=== PATIENT | female | born 1955 | race Caucasian/White ===

== ENCOUNTER 2023-07-06 08:27 | Emergency (ER) | payer MEDICARE, SELFPAY ==
[2023-07-06 08:34] VITALS: BP 161/75; PULSE 69; RESP 16; TEMP 36.7; O2SAT 100; BMI 30.7
--- NOTE | 2023-07-06 08:37 | DI.CT.S_ITS ---
PROCEDURE: CT HEAD/BRAIN WO CON INDICATIONS: fall yesterday TECHNIQUE: Noncontrast 4.5 mm thick angled axial sections acquired from the foramen magnum to the vertex, with coronal and sagittal reformats. For radiation dose reduction, the following was used: automated exposure control, adjustment of mA and/or kV according to patient size. COMPARISON: [facility], CT, CT FACIAL BONES WO CON, 07/06/2023, 8:42. [facility], CT, CT CERVICAL SPINE WO CON, 07/06/2023, 8:42. FINDINGS: Image quality: Excellent. CSF spaces: Basal cisterns are patent. No extra-axial fluid collections. The ventricles are symmetric in size and shape. Brain: No intracranial bleeds or masses. There is cerebral volume loss for age, with resultant ventricular and sulcal prominence. There are periventricular and deep white matter chronic small vessel ischemic changes. There is intracranial internal carotid artery atherosclerosis. Skull and face: Calvarium and visualized facial bones appear intact, without suspicious lesions. Sinuses: Visualized sinuses demonstrate incompletely visualized mucosal thickening within the left maxillary sinus.. IMPRESSION: 1. No acute intracranial process. 2. Mild atrophy and chronic microvascular ischemic changes. Dictated by: Emma Novak M.D. on 07/06/2023 at 9:02 Approved by: Emma Novak M.D. on 07/06/2023 at 9:04
--- NOTE | 2023-07-06 08:37 | DI.CT.S_ITS ---
PROCEDURE: CT CERVICAL SPINE WO CON INDICATIONS: fall TECHNIQUE: Noncontrast 3 mm thick sections acquired from the skull base to the T4 level. Sagittal and coronal reformats were then constructed. For radiation dose reduction, the following was used: automated exposure control, adjustment of mA and/or kV according to patient size. COMPARISON: [facility], CT, CT FACIAL BONES WO CON, 07/06/2023, 8:42. [facility], CT, CT HEAD/BRAIN WO CON, 07/06/2023, 8:42. FINDINGS: Image quality: Excellent. Bones: No fractures or dislocations. Visualized superior ribs are intact. Multilevel degenerative changes are present. Soft tissues: Prevertebral soft tissues are normal in thickness. No paravertebral hematomas. No apical pneumothoraces. Thyroid gland is markedly enlarged with areas of heterogeneous low attenuation and calcification. IMPRESSION: Degenerative changes without visualized fracture. Markedly enlarged thyroid gland as above. This may represent goiter. Further evaluation with nonurgent thyroid ultrasound is recommended. Dictated by: Emma Novak M.D. on 07/06/2023 at 9:18 Approved by: Emma Novak M.D. on 07/06/2023 at 9:21
--- NOTE | 2023-07-06 08:37 | DI.CT.S_ITS ---
PROCEDURE: CT FACIAL BONES WO CON INDICATIONS: fall, nose and forehead TECHNIQUE: Noncontrast 2.5 mm thick axial images acquired from the mandible through the frontal sinuses, with coronal and sagittal reformatting. For radiation dose reduction, the following was used: automated exposure control, adjustment of mA and/or kV according to patient size. COMPARISON: [facility], CT, CT CERVICAL SPINE WO CON, 07/06/2023, 8:42. [facility], CT, CT HEAD/BRAIN WO CON, 07/06/2023, 8:42. FINDINGS: Image quality: Excellent. Bones and teeth: Orbital do are intact. Sinus do show no fracture or deformity. Nasal bones and septum are intact. Visualized portions of the mandible demonstrate no fractures or subluxation. Zygomatic arches are intact. Pterygoid plates are intact. Visualized portions of the skull base and auditory canals are intact. Sinuses: Paranasal sinuses are aerated, without fluid levels. Mucous retention cyst versus polyp is present in the left maxillary sinus. Mastoid air cells are aerated. Soft tissues: Frontal scalp hematoma. No enlarged lymph nodes. No soft tissue lacerations or debris. Vascular: Visualized vascular structures appear normal in the absence of contrast. Bony vascular foramina and canals are intact. IMPRESSION: Frontal scalp hematoma. No visualized osseous fractures. Dictated by: Emma Novak M.D. on 07/06/2023 at 9:17 Approved by: Emma Novak M.D. on 07/06/2023 at 9:18
--- NOTE | 2023-07-06 08:37 | ED.FALL ---
HPI - Fall General Chief Complaint: Head Injury Stated Complaint: sent by [facility] hit head T-1 Time Seen by Provider: 07/06/23 08:33 Source: patient Mode of arrival: Ambulatory History of Present Illness HPI Narrative: Patient is a 68-year-old female without significant past medical history presenting to day after a ground level fall yesterday. She reports that she tripped while carrying buckets of water. She landed on as falls with her left knee hitting her nose and forehead. No loss of consciousness no nausea or vomiting. No numbness tingling or weakness. She is actually not on any antiplatelet or anticoagulation medication. She went to the walk-in clinic today to get checked out and was sent here for further evaluation. No other complaints Related Data Allergies Allergy/AdvReac Type Severity Reaction Status Date / Time metronidazole [From Flagyl] AdvReac Intermediate Vomiting Verified 07/06/23 08:37 Review of Systems Review of Systems ROS Unobtainable: All systems reviewed & are unremarkable except as noted in HPI and below Patient History Social History Smoking Status: Never smoker Smoking Status: Never smoker Substance Use Type: does not use Exam Initial Vital Signs Initial Vital Signs: Vital Signs Temperature 98.1 F 07/06/23 08:34 Pulse Rate 69 07/06/23 08:34 Respiratory Rate 16 07/06/23 08:34 Blood Pressure 161/75 H 07/06/23 08:34 Pulse Oximetry 100 07/06/23 08:34 Oxygen Delivery Method Room Air 07/06/23 08:34 GENERAL: Alert pleasant well-appearing 68-year-old female and in no acute distress. HEENT: Significant abrasion and tenderness forehead right side some no swelling as well no epistaxis no crepitation NECK: No vertebral tenderness full range of motion CARDIOVASCULAR: Regular rate and rhythm without murmurs, rubs or gallops. RESPIRATORY: Breath sounds equal bilaterally, no wheezes rales or rhonchi. ABDOMEN: Soft, nontender. Normoactive bowel sounds all 4 quadrants. No guarding or rebound. EXTREMITIES: Normal range of motion, no clubbing or edema. Neurovascularly intact NEUROLOGICAL: Alert and oriented x4.Normal gait and speech. Occupational Therapy Professor strength equal bilaterally SKIN: Warm, dry, no laceration, no petechiae, no rashes or lesions. Course Orders Ordered: ED Orders 07/06/23 08:37 CT cervical spine wo con Stat CT facial bones wo con Stat CT head/brain wo con Stat Discontinued Medications Diphtheria/Tetanus/Acell Pertussis (Tet,Diph,Pertuss(Acell),Vac/Pf 0.5 Ml Syringe) 0.5 ml IM .ONCE ONE Stop: 07/06/23 08:38 Last Admin: 07/06/23 08:57 Dose: 0.5 ml Documented By: KELLY Vital Signs Vital signs: Vital Signs - 8 hr 07/06/23 08:34 07/06/23 09:37 Temperature 98.1 F Pulse Rate 69 62 Respiratory Rate 16 14 Blood Pressure 161/75 H 136/65 Pulse Oximetry 100 98 Oxygen Delivery Method Room Air Room Air MDM - Fall Imaging Data CT scan - head: Radiologist's Impression: PROCEDURE:? CT HEAD/BRAIN WO CON ? INDICATIONS:? fall yesterday ? TECHNIQUE:? Noncontrast 4.5 mm thick angled axial sections acquired from the foramen magnum to the vertex, with coronal and sagittal reformats.? For radiation dose reduction, the following was used:? automated exposure control, adjustment of mA and/or kV according to patient size.? ? COMPARISON:? [facility], CT, CT FACIAL BONES WO CON, 07/06/2023, 8:42.? [facility], CT, CT CERVICAL SPINE WO CON, 07/06/2023, 8:42. ? FINDINGS:? Image quality:? Excellent.? ? CSF spaces:? Basal cisterns are patent.? No extra-axial fluid collections.? The ventricles are symmetric in size and shape.? ? Brain:? No intracranial bleeds or masses.? There is cerebral volume loss for age, with resultant ventricular and sulcal prominence.? There are periventricular and deep white matter chronic small vessel ischemic changes.? There is intracranial internal carotid artery atherosclerosis.? ? Skull and face:? Calvarium and visualized facial bones appear intact, without suspicious lesions.? ? Sinuses:? Visualized sinuses demonstrate incompletely visualized mucosal thickening within the left maxillary sinus..? ? IMPRESSION:? ? 1. No acute intracranial process. ? 2. Mild atrophy and chronic microvascular ischemic changes. ? ? Dictated by: Emma Novak M.D. on 07/06/2023 at 9:0 CT - cervical spine: Radiologist's Impression: PROCEDURE:? CT CERVICAL SPINE WO CON ? INDICATIONS:? fall ? TECHNIQUE:? Noncontrast 3 mm thick sections acquired from the skull base to the T4 level.? Sagittal and coronal reformats were then constructed.? For radiation dose reduction, the following was used:? automated exposure control, adjustment of mA and/or kV according to patient size.? ? COMPARISON:? [facility], CT, CT FACIAL BONES WO CON, 07/06/2023, 8:42.? [facility], CT, CT HEAD/BRAIN WO CON, 07/06/2023, 8:42. ? FINDINGS:? Image quality:? Excellent.? ? Bones:? No fractures or dislocations.? Visualized superior ribs are intact.? Multilevel degenerative changes are present. ? Soft tissues:? Prevertebral soft tissues are normal in thickness.? No paravertebral hematomas.? No apical pneumothoraces.? Thyroid gland is markedly enlarged with areas of heterogeneous low attenuation and calcification. ? ? IMPRESSION:? Degenerative changes without visualized fracture. ? Markedly enlarged thyroid gland as above.? This may represent goiter.? Further evaluation with nonurgent thyroid ultrasound is recommended. ? Dictated by: Emma Novak M.D. on 07/06/2023 at 9:18 ? ? ct face: Radiologist's Impression: PROCEDURE:? CT FACIAL BONES WO CON ? INDICATIONS:? fall, nose and forehead ? TECHNIQUE:? Noncontrast 2.5 mm thick axial images acquired from the mandible through the frontal sinuses, with coronal and sagittal reformatting.? For radiation dose reduction, the following was used:? automated exposure control, adjustment of mA and/or kV according to patient size.? ? COMPARISON:? [facility], CT, CT CERVICAL SPINE WO CON, 07/06/2023, 8:42.? [facility], CT, CT HEAD/BRAIN WO CON, 07/06/2023, 8:42. ? FINDINGS:? Image quality:? Excellent.? ? Bones and teeth:? Orbital do are intact.? Sinus do show no fracture or deformity.? Nasal bones and septum are intact.? Visualized portions of the mandible demonstrate no fractures or subluxation.? Zygomatic arches are intact.? Pterygoid plates are intact.? Visualized portions of the skull base and auditory canals are intact.? ? Sinuses:? Paranasal sinuses are aerated, without fluid levels.? Mucous retention cyst versus polyp is present in the left maxillary sinus.? Mastoid air cells are aerated.? ? Soft tissues:? Frontal scalp hematoma.? No enlarged lymph nodes.? No soft tissue lacerations or debris.? ? Vascular:? Visualized vascular structures appear normal in the absence of contrast.? Bony vascular foramina and canals are intact.? ? IMPRESSION:? ? Frontal scalp hematoma. ? No visualized osseous fractures. ? ? Dictated by: Emma Novak M.D. on 07/06/2023 at 9:17 ? ? MDM Narrative Medical decision making narrative: Patient is 68-year-old female presents today with ground level fall yesterday. Significant can abrasion on forehead. CT head, facial and cervical spine are all negative for fracture. Supportive care only. Discussed with her when to return to ED. Discharge Plan Departure Patient Disposition: Home Clinical Impression: Closed head injury Instructions: Concussion Activity Restrictions/Additional Instructions: *You have been diagnosed with closed head injury *What to do: At this time be sure that you get some rest. Ice forehead 20-30 minutes at a time if needed *Continue to take medications as directed Motrin 600 mg every 6 hours if needed for [id number] Tylenol 650 mg every 4-6 hours if needed for [id number] *Follow up with your primary care provider in 2-3 days or call [phone] *Return to ER if you should have increasing pain persistent vomiting numbness tingling weakness or any new, worsening or concerning symptoms Referrals: Chapito,MD Eliezer [Primary Care Provider] - Stand Alone Forms: Patient Portal/API
[2023-07-06] MEDS: TET,DIPH,PERTUSS(ACELL),VAC/PF 0.5 ML SYRINGE IM (08:57)
[2023-07-06 09:37] VITALS: BP 136/65; PULSE 62; RESP 14; O2SAT 98
== END 2023-07-06 09:35 | disposition home or self-care (01) ==
PROVIDERS: Emergency Provider Emergency Medicine
DX: S09.90XA Unspecified injury of head, initial encounter (principal); W01.0XXA Fall on same level from slipping, tripping and stumbling without subsequent striking against object, initial encounter; Z23 Encounter for immunization
CPT/HCPCS: 70450; 70486; 72125; 90471; 99283; 99284; 90715

== ENCOUNTER 2023-08-22 19:04 | Emergency (ER) | payer MEDICARE, SELFPAY ==
[2023-08-22] VITALS (7 sets, daily range): BP systolic 134–160; BP diastolic 71–113; PULSE 83–112; RESP 16–18; TEMP 36.6–37.3; O2SAT 98–100; BMI 30.7
--- NOTE | 2023-08-22 19:31 | ED.FEMALEGU ---
HPI - Female Genitourinary General Chief complaint: Urogenital-Female Stated complaint: urinating blood/ incontinence Time Seen by Provider: 08/22/23 19:17 Source: patient Mode of arrival: Ambulatory History of Present Illness HPI Narrative: Patient is a healthy 68-year-old female presents today with urinary incontinence and frequency with some hematuria. She says that it feels like when she had her last bladder infection. She reports that yesterday she was feeling fine. Today she is had significant urinary incontinence needing to make homemade pads. She is some right lower abdominal pain. She denies fever chills or nausea but is noted to be mildly tachycardic. No flank pain Related Data Previous Rx's Medication Instructions Recorded cephalexin 500 mg capsule 500 mg PO BID 7 days #14 caps 08/22/23 Allergies Allergy/AdvReac Type Severity Reaction Status Date / Time metronidazole [From Flagyl] AdvReac Intermediate Vomiting Verified 08/22/23 19:11 Patient History Substance Use Type: does not use Exam Initial Vital Signs Initial Vital Signs: Vital Signs Temperature 99.1 F 08/22/23 19:08 Pulse Rate 112 H 08/22/23 19:08 Respiratory Rate 18 08/22/23 19:08 Blood Pressure 160/86 H 08/22/23 19:08 Pulse Oximetry 99 08/22/23 19:08 Oxygen Delivery Method Room Air 08/22/23 19:08 GENERAL: Pleasant 68-year-old female HEENT: Head atraumatic,EOMI, pupils reactive, face symmetric, moist mucous membranes CARDIOVASCULAR: Tachycardic regular RESPIRATORY: Breath sounds equal bilaterally, no wheezes rales or rhonchi. ABDOMEN: Soft, mild right lower quadrant tenderness no suprapubic pain no flank pain negative Ray's sign no distention no guarding or rebound : No CVA tenderness EXTREMITIES: Normal range of motion, no clubbing or edema. Neurovascularly intact NEUROLOGICAL: Alert and oriented x4.Normal gait and speech. Cranial nerves II through XII grossly intact. SKIN: Warm, dry, no laceration, no petechiae, no rashes or lesions. Course Orders Ordered: ED Orders 08/22/23 19:19 Ictotest Urine Stat Urinalysis and Microscopic Stat Urine Culture Stat 08/22/23 20:04 CBC Auto Diff [Complete Blood Count AUTO DIFF] Stat CMP [Comprehensive Metabolic Panel] Stat Lactate (Lactic Acid) Stat Lipase Stat 08/22/23 20:37 CT abdomen pelvis w con Stat Discontinued Medications Sodium Chloride (Normal Saline 0.9%) 1,000 mls @ 1,000 mls/hr IV BOLUS ONE Stop: 08/22/23 20:39 Last Infusion: 08/22/23 22:15 Dose: Infused Documented By: Admin: 08/22/23 20:17 Dose: 1,000 mls/hr Documented By: SHEILA Ceftriaxone Sodium 1,000 mg/ (Sodium Chloride) 100 mls @ 200 mls/hr IV NOW ONE Stop: 08/22/23 19:57 Last Infusion: 08/22/23 21:00 Dose: Infused Documented By: Admin: 08/22/23 20:17 Dose: 200 mls/hr Documented By: SHEILA Ondansetron HCl (Ondansetron 4 Mg Odt) 4 mg SL NOW PRN PRN Reason: Nausea And Vomiting Vital Signs Vital signs: Vital Signs - 8 hr 08/22/23 19:08 08/22/23 21:00 08/22/23 21:02 Temperature 99.1 F Pulse Rate 112 H 90 89 Respiratory Rate 18 16 Blood Pressure 160/86 H 138/85 Pulse Oximetry 99 99 98 Oxygen Delivery Method Room Air Room Air 08/22/23 21:36 08/22/23 21:38 08/22/23 21:38 Temperature Pulse Rate 89 87 Respiratory Rate Blood Pressure 137/113 H Pulse Oximetry 99 100 Oxygen Delivery Method 08/22/23 21:40 08/22/23 21:40 08/22/23 22:00 Temperature 98 F Pulse Rate 86 83 Respiratory Rate 16 Blood Pressure 134/71 Pulse Oximetry 100 100 Oxygen Delivery Method 08/22/23 22:00 Temperature Pulse Rate Respiratory Rate Blood Pressure 141/78 H Pulse Oximetry Oxygen Delivery Method MDM - Female Genitourinary Lab Data 08/22/23 20:04 08/22/23 20:04 Labs: Lab Results 08/22/23 08/22/23 Range/Units 19:19 20:04 WBC 13.9 H (4.5-11.0) X10^3/uL RBC 4.37 (4.0-5.2) X10^6/uL Hgb 12.5 (12.0-16.0) g/dL Hct 37.9 (36-46) % MCV 86.9 (80-100) fL MCH 28.7 (26-34) PG MCHC 33.1 (30-36) % RDW 13.4 (11.6-14.8) % Plt Count 366 (150-400) X10^3/uL Neut % (Auto) 79.3 H (50-75) % Lymph % (Auto) 14.0 L (25-40) % [place] % (Auto) 5.6 (3-14) % Eos % (Auto) 0.6 L (2-4) % Baso % (Auto) 0.5 (0-2) % Neut # (Auto) 98298 H (6672-9633) /uL Lymph # (Auto) 1900 (1084-2398) /uL [place] # (Auto) 800 (0-900) /uL Eos # (Auto) 100 (0-450) /uL Baso # (Auto) 100 (0-100) /uL Sodium 137 (137-145) mmol/L Potassium 3.9 (3.4-5.1) mmol/L Chloride 102 (98-107) mmol/L Carbon Dioxide 24 (22-32) mmol/L BUN 21 H (7-17) mg/dL Creatinine 0.69 (0.52-1.04) mg/dL Estimated GFR > 60 (>60) mL/min BUN/Creatinine Ratio 30.4 H (6-22) Glucose 110 (80-110) mg/dL Lactate 1.1 (0.7-2.1) mmol/L Calcium 9.4 (8.4-10.2) mg/dL Total Bilirubin 0.4 (0.2-1.3) mg/dL AST 25 (14-36) IU/L ALT 31 (<35) IU/L Alkaline Phosphatase 55 (38-126) U/L Total Protein 7.6 (6.3-8.2) g/dL Albumin 4.4 (3.5-5.0) g/dL Globulin 3.2 (1.7-4.1) g/dL Albumin/Globulin Ratio 1.4 (1.0-2.8) Lipase 242 (23-300) U/L Urine Color Red Urine Appearance Cloudy Urine pH 6.5 (4.5-8.0) Ur Specific [place] 1.010 (1.000-1.035) Urine Protein 3+ H (Negative) Urine Glucose (UA) Trace H (Negative) g/dL Urine Ketones 1+ H (NEGATIVE) Urine Occult Blood 3+ H (Negative) Urine Nitrate Positive H (Negative) Urine Bilirubin 2+ H (NEGATIVE) Ur Bilirubin Confirm Negative (Negative) Urine Urobilinogen 2.0 H (0.2) E.U./dL Ur Leukocyte Esterase 1+ H (NEGATIVE) Urine RBC >100/hpf H (0-5/HPF) Urine WBC 10-30/hpf H (0-5/HPF) Ur Squamous Epith Cells None seen (0-5/HPF) Urine Bacteria None seen (None) Ur Culture Indicated? Specimen cultured Imaging Data CT scan - abdomen/pelvis: Radiologist's Impression: PROCEDURE: CT ABDOMEN PELVIS W CON INDICATIONS: RLQ pain TECHNIQUE: After the administration of intravenous contrast, axial sections acquired from the lung bases to the pubic symphysis. Coronal and sagittal reformats were performed. For radiation dose reduction, the following was used: automated exposure control, adjustment of mA and/or kV according to patient size. COMPARISON: None. FINDINGS: Image quality: Excellent. Lung bases: Unremarkable. Heart: No significant findings. ABDOMEN: Liver: Multiple well-circumscribed hypodense structures are seen scattered in liver parenchyma measures up to 4.6 x 3.2 cm in size in anterior right hepatic dome and 3.3 Hounsfield unit in density. Gallbladder: Within normal limits. Biliary ducts: Unremarkable. Pancreas: Unremarkable. Spleen: Unremarkable. Adrenal Glands: Thickened bilateral adrenal glands with suggestion of 1 x 0.7 cm left hypodense thyroid nodule and 1 x 0.9 cm right hypodense thyroid nodule. Kidneys and Ureters: Unremarkable. Stomach and Bowel: There is no bowel obstruction. No gastric or small bowel wall thickening.: Appendix is visualized in right lower quadrant and is normal in size and appearance. Diffuse sigmoid colon and distal descending colon wall thickening is seen with narrowing of the lumen and pericolonic fat stranding series 2, image 71 and 72. No abscess collection. Peritoneum: No abnormal intraperitoneal fluid. No free air. Ventral Wall: No hernias. Abdominal Nodes: No retroperitoneal or mesenteric adenopathy by size criteria. Vessels: Aorta and inferior vena cava are normal in size. PELVIS: Pelvic Organs: Unremarkable. Bladder: Unremarkable. Pelvic Nodes: No enlarged lymph nodes. Miscellaneous: No hernias are seen. Bones: No suspicious bony lesions. No acute vertebral body compression fracture. Degenerative disc disease throughout lower thoracic and lumbar spine is seen. IMPRESSION: 1. Diffusely thickened distal descending colon and sigmoid colon suggestive of infectious inflammatory colitis. No abscess collection. Normal appendix. No free fluid or free air. 2. Multiple fluid density structures scattered in liver parenchyma likely represent hepatic cysts. 3. Thickened bilateral adrenal glands with small bilateral hypodense adrenal nodules which may represent benign adrenal adenoma. Dictated by: Lauri Apple M.D. on 08/22/2023 at 21:40 Approved by: Lauri Apple M.D. on 08/22/2023 at 21:[address] [facility] Narrative Medical decision making narrative: Patient healthy 68-year-old female presents today with painful frequent urination with urinary incontinence and some mild right lower quadrant pain. Blood work does reveal leukocytosis she is mildly tachycardic. Definite your UTI with nitrites blood and leukocytes. She is given a dose of Rocephin in the ED. Abdomen reexamined she continues to be mild right lower quadrant pain. CT does show infectious/inflammatory colitis without abscess or obvious diverticulitis. Reasonable to treat for UTI may be reactive from UTI. Discharge Plan Departure Patient Disposition: Home Clinical Impression: Urinary tract infection, Colitis Instructions: DI for Urinary Tract Infection (UTI), DI for Colitis Activity Restrictions/Additional Instructions: *You have been diagnosed with bladder infection and inflamed colon *What to do: Your diagnosed with a bladder infection and some colon inflammation. The bladder at maybe causing some inflammatory response in your colon. At this time I think reasonable to treat with a bladder infection see if it improves her belly pain. However if it does not then you may need different and more antibiotics. *Continue to take medications as directed Keflex 500 mg twice a day for 7 days *Follow up with your primary care provider in 2-3 days or call [phone] *Return to ER if you should have increased abdominal pain bloody stool nausea vomiting not tolerating fluids [or] any new, worsening or concerning symptoms Prescriptions: New cephalexin 500 mg capsule 500 mg PO BID 7 Days Qty: 14 0RF Referrals: Chapito,MD Eliezer [Primary Care Provider] - Stand Alone Forms: Patient Portal/API
[2023-08-22 19:44] LABS: Appearance Urine UA CLOUDY; Bilirubin Urine UA 2+ (NEGATIVE); Color Urine UA RED; Glucose Urine UA TRACE g/dL (Negative); Ketones Urine UA 1+ (NEGATIVE); Leukocyte Esterase Urine UA 1+ (NEGATIVE); Nitrite Urine UA POSITIVE (Negative); Occult Blood Urine UA 3+ (Negative); Protein Urine UA 3+ (Negative)
[2023-08-22 19:54] LABS: pH Urine UA 6.5 (4.5-8.0)
[2023-08-22 19:55] LABS: Bacteria Urine None Seen; Culture Indicated Urine Specimen Cultured; Ictotest Urine Negative (Negative); RBC Urine >100/HPF (0-5/HPF); Squamous Epithelial Cell Urine None Seen (0-5/HPF); WBC Urine 10-30/HPF (0-5/HPF)
[2023-08-22 20:15] LABS: Add Manual Diff / Slide Review NO; Basophils Absolute Auto 100 /uL (0-100); Basophils Percent Auto 0.5 % (0-2); Eosinophils Absolute Auto 100 /uL (0-450); Eosinophils Percent Auto 0.6 % (2-4); Hematocrit 37.9 % (36-46); Hemoglobin 12.5 g/dL (12.0-16.0); Lymphocytes Absolute Auto 1900 /uL (1100-4500); Mean Corpuscular HGB Conc 33.1 % (30-36); Mean Corpuscular Hemoglobin 28.7 PG (26-34); Mean Corpuscular Volume 86.9 fL (80-100); Monocytes Absolute Auto 800 /uL (0-900); Monocytes Percent Auto 5.6 % (3-14); Neutrophils Absolute Auto 11000 /uL (1500-7000); Neutrophils Percent Auto 79.3 % (50-75); Platelet Count 366 X10^3/uL (150-400); Red Blood Cell Count 4.37 X10^6/uL (4.0-5.2); Red Cell Distribution Width 13.4 % (11.6-14.8); White Blood Cell Count 13.9 X10^3/uL (4.5-11.0)
[2023-08-22] MEDS: cefTRIAXone 1,000 MG in SODIUM CHLORIDE 0.9% 100 ML 200 MG IV (20:17)
[2023-08-22] MEDS: SODIUM CHLORIDE 0.9% 1,000 ML 1000 ML IV (20:17)
[2023-08-22 20:23] LABS: Alanine Aminotransferase 31 IU/L (<35); Albumin 4.4 g/dL (3.5-5.0); Albumin Globulin Ratio 1.4 (1.0-2.8); Alkaline Phosphatase 55 U/L (38-126); Aspartate Aminotransferase 25 IU/L (14-36); BUN Creatinine Ratio 30.4 (6-22); Bilirubin Total 0.4 mg/dL (0.2-1.3); Blood Urea Nitrogen 21 mg/dL (7-17); Calcium 9.4 mg/dL (8.4-10.2); Carbon Dioxide 24 mmol/L (22-32); Chloride 102 mmol/L (98-107); Estimated Glomerular Filt Rate > 60 mL/min (>60); Globulin 3.2 g/dL (1.7-4.1); Glucose 110 mg/dL (80-110); HEMOLYSIS < 15 (0-50); Lipase 242 U/L (23-300); Potassium 3.9 mmol/L (3.4-5.1); Sodium 137 mmol/L (137-145); Total Protein 7.6 g/dL (6.3-8.2)
[2023-08-22 20:24] LABS: Lactate (Lactic Acid) 1.1 mmol/L (0.7-2.1)
--- NOTE | 2023-08-22 20:37 | DI.CT.S_ITS ---
PROCEDURE: CT ABDOMEN PELVIS W CON INDICATIONS: RLQ pain TECHNIQUE: After the administration of intravenous contrast, axial sections acquired from the lung bases to the pubic symphysis. Coronal and sagittal reformats were performed. For radiation dose reduction, the following was used: automated exposure control, adjustment of mA and/or kV according to patient size. COMPARISON: None. FINDINGS: Image quality: Excellent. Lung bases: Unremarkable. Heart: No significant findings. ABDOMEN: Liver: Multiple well-circumscribed hypodense structures are seen scattered in liver parenchyma measures up to 4.6 x 3.2 cm in size in anterior right hepatic dome and 3.3 Hounsfield unit in density. Gallbladder: Within normal limits. Biliary ducts: Unremarkable. Pancreas: Unremarkable. Spleen: Unremarkable. Adrenal Glands: Thickened bilateral adrenal glands with suggestion of 1 x 0.7 cm left hypodense thyroid nodule and 1 x 0.9 cm right hypodense thyroid nodule. Kidneys and Ureters: Unremarkable. Stomach and Bowel: There is no bowel obstruction. No gastric or small bowel wall thickening.: Appendix is visualized in right lower quadrant and is normal in size and appearance. Diffuse sigmoid colon and distal descending colon wall thickening is seen with narrowing of the lumen and pericolonic fat stranding series 2, image 71 and 72. No abscess collection. Peritoneum: No abnormal intraperitoneal fluid. No free air. Ventral Wall: No hernias. Abdominal Nodes: No retroperitoneal or mesenteric adenopathy by size criteria. Vessels: Aorta and inferior vena cava are normal in size. PELVIS: Pelvic Organs: Unremarkable. Bladder: Unremarkable. Pelvic Nodes: No enlarged lymph nodes. Miscellaneous: No hernias are seen. Bones: No suspicious bony lesions. No acute vertebral body compression fracture. Degenerative disc disease throughout lower thoracic and lumbar spine is seen. IMPRESSION: 1. Diffusely thickened distal descending colon and sigmoid colon suggestive of infectious inflammatory colitis. No abscess collection. Normal appendix. No free fluid or free air. 2. Multiple fluid density structures scattered in liver parenchyma likely represent hepatic cysts. 3. Thickened bilateral adrenal glands with small bilateral hypodense adrenal nodules which may represent benign adrenal adenoma. Dictated by: Lauri Apple M.D. on 08/22/2023 at 21:40 Approved by: Lauri Apple M.D. on 08/22/2023 at 21:45
== END 2023-08-22 22:18 | disposition home or self-care (01) ==
PROVIDERS: Emergency Provider Emergency Medicine
DX: N39.0 Urinary tract infection, site not specified (principal); K52.9 Noninfective gastroenteritis and colitis, unspecified; R10.31 Right lower quadrant pain; R00.0 Tachycardia, unspecified
CPT/HCPCS: 36415; 74177; 80053; 81001; 83605; 83690; 85025; 87077; 87086; 87186; 96365; 99284; J0696; Q9967

== ENCOUNTER → 2023-09-13 09:10 | Outpatient (CLI) | payer MEDICARE, SELFPAY ==
[2023-09-13 10:04] LABS: Add Manual Diff / Slide Review NO; Basophils Absolute Auto 0 /uL (0-100); Basophils Percent Auto 0.6 % (0-2); Eosinophils Absolute Auto 100 /uL (0-450); Eosinophils Percent Auto 2.2 % (2-4); Hematocrit 39.7 % (36-46); Hemoglobin 13.1 g/dL (12.0-16.0); Lymphocytes Absolute Auto 1600 /uL (1100-4500); Lymphocytes Percent Auto 27.7 % (25-40); Mean Corpuscular HGB Conc 33.1 % (30-36); Mean Corpuscular Volume 87.7 fL (80-100); Monocytes Absolute Auto 400 /uL (0-900); Monocytes Percent Auto 7.2 % (3-14); Neutrophils Absolute Auto 3600 /uL (1500-7000); Neutrophils Percent Auto 62.3 % (50-75); Platelet Count 283 X10^3/uL (150-400); Red Blood Cell Count 4.52 X10^6/uL (4.0-5.2); Red Cell Distribution Width 13.4 % (11.6-14.8); White Blood Cell Count 5.7 X10^3/uL (4.5-11.0)
[2023-09-13 10:27] LABS: Alanine Aminotransferase 32 IU/L (<35); Albumin 4.4 g/dL (3.5-5.0); Albumin Globulin Ratio 1.4 (1.0-2.8); Alkaline Phosphatase 56 U/L (38-126); Aspartate Aminotransferase 26 IU/L (14-36); Bilirubin Total 0.7 mg/dL (0.2-1.3); Blood Urea Nitrogen 17 mg/dL (7-17); Calcium 9.7 mg/dL (8.4-10.2); Carbon Dioxide 28 mmol/L (22-32); Chloride 101 mmol/L (98-107); Cholesterol 217 mg/dL (140-199); Estimated Glomerular Filt Rate > 60 mL/min (>60); Globulin 3.2 g/dL (1.7-4.1); Glucose 103 mg/dL (80-110); HDL Cholesterol 66 mg/dL (40-60); HEMOLYSIS 19 (0-50); LDL Cholesterol Calculated 123 mg/dL (<100); Potassium 4.3 mmol/L (3.4-5.1); Sodium 137 mmol/L (137-145); Total Protein 7.6 g/dL (6.3-8.2); Triglycerides 139 mg/dL (35-150)
[2023-09-13 10:44] LABS: Free T3, Triiodothyronine Free 6.15 pg/mL (2.77-5.27); Free T4, Direct Thyroxine 1.75 ng/dL (0.78-2.19)
[2023-09-13 11:01] LABS: Thyroid Stimulating Hormone < 0.015 uIU/mL (0.47-4.68)
== END ==
PROVIDERS: PCP Family Medicine; Referring Provider Family Medicine; Visit Provider Family Medicine
DX: Z00.00 Encounter for general adult medical examination without abnormal findings (principal); R73.03 Prediabetes; E05.90 Thyrotoxicosis, unspecified without thyrotoxic crisis or storm; Z80.3 Family history of malignant neoplasm of breast; N39.0 Urinary tract infection, site not specified
CPT/HCPCS: 36415; 80053; 80061; 84439; 84443; 84481; 85025

== ENCOUNTER → 2023-10-25 11:21 | Outpatient (CLI) | payer MEDICARE, SELFPAY ==
[2023-10-25 14:24] LABS: Free T4, Direct Thyroxine 1.91 ng/dL (0.78-2.19)
[2023-10-25 14:39] LABS: Thyroid Stimulating Hormone < 0.015 uIU/mL (0.47-4.68)
== END ==
PROVIDERS: PCP Family Medicine; Referring Provider Family Medicine; Visit Provider Family Medicine
DX: E05.90 Thyrotoxicosis, unspecified without thyrotoxic crisis or storm (principal)
CPT/HCPCS: 36415; 84439; 84443

== ENCOUNTER → 2023-12-07 10:48 | Outpatient (CLI) | payer MEDICARE, SELFPAY ==
[2023-12-07 12:07] LABS: Prolactin 7.4 ng/mL (3.0-18.6)
[2023-12-07 12:11] LABS: Free T3, Triiodothyronine Free 7.03 pg/mL (2.77-5.27); Free T4, Direct Thyroxine 2.26 ng/dL (0.78-2.19)
[2023-12-07 12:25] LABS: Thyroid Stimulating Hormone 0.018 uIU/mL (0.47-4.68)
== END ==
PROVIDERS: PCP Family Medicine; Referring Provider Family Medicine; Visit Provider Family Medicine
DX: E05.90 Thyrotoxicosis, unspecified without thyrotoxic crisis or storm (principal)
CPT/HCPCS: 36415; 82397; 84146; 84439; 84443; 84481

== ENCOUNTER → 2023-12-31 12:15 | Outpatient (CLI) | payer MEDICARE, SELFPAY ==
--- NOTE | 2023-12-31 12:15 | DI.US.S_ITS ---
PROCEDURE: US THYROID INDICATIONS: eval thyroid TECHNIQUE: Real-time scanning was performed of the thyroid gland, with image documentation. COMPARISON: Outside Facility, US, US SOFT TISSUE HEAD AND NECK, 01/22/2022, 7:48. FINDINGS: Thyroid: Right lobe measures 9.0 x 2.9 x 2.3 cm. Left lobe measures 8.4 x 3.7 x 3.9 cm. Isthmus is 1.0 cm thick. Echotexture is markedly heterogeneous. Nodule number: 1 Location: Right upper pole Size: 3.2 x 2.7 x 2.0 cm, previously 3.4 x 2.3 x 2.9 cm. Composition: Solid Echogenicity: Hypoechoic Shape: wider than tall. Margins: Smooth Echogenic foci: None Total points: 4 ACR TI-RADS category: TI-RADS 4 (moderately suspicious): Nodule number: 2 Location: Right middle pole Size: 1.7 x 1.6 x 1.1 cm, previously 0.9 x 0.7 x 0.8 cm. Composition: Solid Echogenicity: Hypoechoic Shape: wider than tall. Margins: Smooth Echogenic foci: None Total points: 4 ACR TI-RADS category: TI-RADS 4 (moderately suspicious): Nodule number: 3 Location: Right lower pole Size: 5.2 x 4.1 x 3.7 cm, previously 5.0 x 3.4 x 4.0 cm. Composition: Solid Echogenicity: Hypoechoic Shape: wider than tall. Margins: Smooth Echogenic foci: None Total points: 4 ACR TI-RADS category: TI-RADS 4 (moderately suspicious): IMPRESSION: 1. Markedly heterogeneous multi nodular goiter. 2. There are 3 nodules described above which all are sufficient size based on their imaging characteristics to merit ultrasound-guided FNA. Based on sizes and imaging characteristics of these lesions, ultrasound-guided FNA is recommended to determine tissue diagnosis of these lesions if this has not been previously performed with a benign tissue diagnosis. If there is a clinical need to sample all 3 of these nodules, no more than 2 nodules will be sampled on any given day. 2 nodules would be sampled on the 1st date and the 3rd nodule would be sampled on a subsequent encounter. Please see chart below. ACR TI-RADS definitions and recommendations: TI-RADS 1 (benign): 0 points. FNA not needed. TI-RADS 2 (not suspicious): 2 points. FNA not needed. TI-RADS 3 (mildly suspicious): 3 points. * FNA if 2.5 cm or larger, follow up if 1.5 cm or larger (at 1, 3, and 5 years). TI-RADS 4 (moderately suspicious): 4-6 points. * FNA if 1.5 cm or larger, follow up if 1 cm or larger (at 1, 2, 3, and 5 years). TI-RADS 5 (highly suspicious): 7 points or more. * FNA if 1 cm or larger, follow up if 0.5 cm or larger (every year for 5 years). Dictated by: Khang Jacome M.D. on 01/02/2024 at 11:26 Approved by: Khang Jacome M.D. on 01/02/2024 at 11:37
== END ==
LOC: US 12:15
PROVIDERS: PCP Family Medicine; Referring Provider Family Medicine; Visit Provider Family Medicine
DX: E05.90 Thyrotoxicosis, unspecified without thyrotoxic crisis or storm (principal); E04.2 Nontoxic multinodular goiter
CPT/HCPCS: 76536

== ENCOUNTER → 2024-01-14 15:57 | Outpatient (CLI) | payer MEDICARE, SELFPAY ==
--- NOTE | 2024-01-14 15:58 | DI.MG.S_ITS ---
BILATERAL DIGITAL SCREENING MAMMOGRAM 3D/2D WITH CAD: 01/14/2024 CLINICAL: Routine screening. Family history of breast cancer. Comparison is made to exams dated: 08/07/2022 mammogram, 02/17/2021 mammogram, and 01/03/2019 mammogram - Outside facility. There are scattered areas of fibroglandular density in both breasts (category b / 25%-50% glandular tissue). Current study was also evaluated with a Computer Aided Detection (CAD) system. No significant masses, calcifications, or other findings are seen in either breast. There has been no significant interval change. IMPRESSION: NEGATIVE There is no mammographic evidence of malignancy. A 1 year screening mammogram is recommended. Based on the Tyrer Cuzick model (a risk assessment model) the patient's lifetime risk is 9.6% and her 10 year risk is 6.1%. According to the ACR, ACS, and NCCN guidelines, an annual breast MRI exam along with mammogram is recommended if the patient's lifetime risk is 20% or greater. This exam was interpreted at Station ID: [id number]. NOTE: For mammograms, a report in lay terms will be sent to the patient. Approximately 15% of breast malignancies will not be visualized mammographically. In the management of a palpable breast mass, a negative mammogram must not discourage biopsy of a clinically suspicious lesion. Electronically Signed By: Asher herrera/noe:01/21/2024 13:12:25 letter sent: Normal Exam ACR BI-RADS Category 1: Negative [id number]
== END ==
PROVIDERS: PCP Family Medicine; Referring Provider Family Medicine; Visit Provider Family Medicine
DX: Z12.31 Encounter for screening mammogram for malignant neoplasm of breast (principal); Z80.3 Family history of malignant neoplasm of breast; R92.333 Mammographic heterogeneous density, bilateral breasts
CPT/HCPCS: 77063; 77067

== ENCOUNTER 2024-02-10 07:47 | Day surgery (SDC) | payer MEDICARE, SELFPAY ==
[2024-02-10 08:31] VITALS: BP 137/78; PULSE 85; RESP 16; TEMP 36.9; O2SAT 98
--- NOTE | 2024-02-10 08:31 | P.HP_ITS ---
History of Present Illness History of Present Illness Date Patient Seen: 02/10/24 Time Patient Seen: 08:31 Chief complaint: Dx Colonoscopy w/poss bx Narrative: Shakila is here for her colonoscopy. See the office note from October for details. She continues to have occasional abdominal discomfort and bloody mucoid discharge from time to time [facility] Medical History Multiple thyroid nodules Pre-diabetes Family history of breast cancer Preventative health care Hyperthyroidism Diverticulosis Social History Smoking Status: Never smoker alcohol intake: current Meds Home Medications and Allergies Home Medications Medication Instructions Recorded Confirmed Type methimazole 5 mg tablet 5 mg PO DAILY #30 tabs 12/29/23 02/10/24 Rx Allergies Allergy/AdvReac Type Severity Reaction Status Date / Time metronidazole [From Flagyl] AdvReac Intermediate Vomiting Verified 02/10/24 08:21 Exam Const General: No acute distress Resp Effort & Inspection: normal respiratory effort Assessment & Plan Assessment and plan (1) Rectal bleeding: Status: Acute Plan We reviewed the risks and benefits of colonoscopy for rectal bleeding and she would like to proceed.
[2024-02-10] MEDS: LACTATED RINGERS 1,000 ML 100 ML IV (08:46)
--- NOTE | 2024-02-10 09:37 | PM.OP.COLON ---
Operative Date/Time/Diagnoses Date of procedure: 02/10/24 Time of procedure: 09:37 Pre-op diagnosis: Rectal bleeding Post-op diagnosis: same Procedure & Clinicians Study performed: Sigmoidoscopy Same procedure as scheduled: No (Colonoscopy was aborted because of tortuous and inflammatory sigmoid colon ) Surgeon: Tod Singh Procedure Notes Procedure in detail: Surgeon: Tod Singh MD Anesthesia: Saad Houston.Lawson Procedure: The patient was brought to the endoscopy suite, placed in left lateral decubitus position. The patient was connected to monitoring devices. A time-out was performed. Sedation was administered. Once the patient was adequately sedated, a digital rectal exam was performed and was normal. The scope was then inserted and advanced to the mid sigmoid colon. The sigmoid colon was very fixed and inflamed and the scope could not safely be advanced. The patient was also experiencing hypoxia. The procedure was terminated. The patient was awakened and brought to recovery. Scope withdrawal time: Not applicable Sedation time: 20 minutes EBL: None Findings: Rigid and inflamed sigmoid colon Post-procedure Disposition: PACU
[2024-02-10 09:45] VITALS: BP 132/62; PULSE 86; RESP 14; TEMP 36.2; O2SAT 96
[2024-02-10 09:50] VITALS: BP 110/65; PULSE 86; RESP 14; O2SAT 96
[2024-02-10 09:54] VITALS: BP 120/68; PULSE 83; RESP 16; TEMP 36.2; O2SAT 97
[2024-02-10 10:03] VITALS: BP 121/66; PULSE 83; RESP 17; TEMP 36.2; O2SAT 96
== END 2024-02-10 10:18 | disposition home or self-care (01) ==
PROVIDERS: PCP Family Medicine; Referring Provider Surgery; Visit Provider Surgery
PROC: 0DJD8ZZ Inspection of Lower Intestinal Tract, Via Natural or Artificial Opening Endoscopic (ICD-10-PCS; CPT 45378; principal; 2024-02-10 08:45)
DX: K62.5 Hemorrhage of anus and rectum (principal); R09.02 Hypoxemia; K52.9 Noninfective gastroenteritis and colitis, unspecified; Z53.09 Procedure and treatment not carried out because of other contraindication
CPT/HCPCS: 45378; J2704

== ENCOUNTER → 2024-02-24 09:25 | Outpatient (CLI) | payer MEDICARE, SELFPAY ==
[2024-02-24 10:34] LABS: Free T3, Triiodothyronine Free 5.55 pg/mL (2.77-5.27); Free T4, Direct Thyroxine 1.45 ng/dL (0.78-2.19)
[2024-02-24 10:48] LABS: Thyroid Stimulating Hormone < 0.015 uIU/mL (0.47-4.68)
== END ==
LOC: LAB 09:26
PROVIDERS: PCP Family Medicine; Referring Provider Family Medicine; Visit Provider Family Medicine
DX: Z00.00 Encounter for general adult medical examination without abnormal findings (principal); E05.90 Thyrotoxicosis, unspecified without thyrotoxic crisis or storm
CPT/HCPCS: 36415; 84439; 84443; 84481

== ENCOUNTER → 2024-03-03 11:24 | Outpatient (CLI) | payer MEDICARE, SELFPAY ==
--- NOTE | 2024-03-03 11:25 | DI.RAD.S_ITS ---
PROCEDURE: XR DEXA AXIAL SKELETON INDICATIONS: routine screening COMPARISON: None. FINDINGS: Lumbar Spine: Bone mineral density 1.050 g/cm2, T score 0.0. Left Hip: Bone mineral density 0.878 g/cm2, T score -0.5. Left Femoral Neck: Bone mineral density 0.723 g/cm2, T score -1.1. Right Hip: Bone mineral density 0.918 g/cm2, T score -0.2. Right Femoral Neck: Bone mineral density 0.750 g/cm2, T score -0.9. Fracture Risk Calculation (when applicable): 10-year fracture risk of a major osteoporotic fracture 8.4% and of a hip fracture 0.8%. (T score greater or equal to -1.0 to: NORMAL) (T score from -1.1 to -2.4: OSTEOPENIA) (T score less than or equal to -2.5: OSTEOPOROSIS) IMPRESSION: Osteopenia Follow-up guidelines as follows: Osteoporosis: Consider a repeat DEXA and Vertebral Fracture Assessment (VFA) exam in 2 years or sooner if medically necessary, to reassess this patient's status. Osteopenia: Consider a repeat DEXA in 2-3 years to reassess this patient's status, or if there is a new clinical indication. Normal: Consider a repeat DEXA in 5 years or sooner, or if there is a new clinical indication. Dictated by: Carlos Roman M.D. on 03/03/2024 at 15:33 Approved by: Carlos Roman M.D. on 03/03/2024 at 15:35
== END ==
PROVIDERS: PCP Family Medicine; Referring Provider Family Medicine; Visit Provider Family Medicine
DX: M81.0 Age-related osteoporosis without current pathological fracture (principal)
CPT/HCPCS: 77080

== ENCOUNTER → 2024-03-24 10:04 | Outpatient (CLI) | payer MEDICARE, SELFPAY ==
--- NOTE | 2024-03-24 10:05 | DI.CT.S_ITS ---
PROCEDURE: CT ABDOMEN PELVIS W CON INDICATIONS: Abdominal pain TECHNIQUE: After the administration of intravenous contrast, axial sections acquired from the lung bases to the pubic symphysis. Coronal and sagittal reformats were performed. For radiation dose reduction, the following was used: automated exposure control, adjustment of mA and/or kV according to patient size. COMPARISON: [facility], CT, CT ABDOMEN PELVIS W CON, 08/22/2023, 20:41. FINDINGS: Image quality: Excellent Lower chest: Unremarkable Liver: Multiple hypoenhancing lesion within the liver, grossly unchanged from prior exam, the majority which likely represent hepatic cysts, while others are too small to be characterized. Mild focal fat along the falciform ligament. Unchanged. The gallbladder, pancreas, spleen, are unremarkable. Bilateral small adrenal nodules, measuring approximately 1.0 cm on each side, indeterminate, but are grossly unchanged from prior exam. The right and the left kidney are unremarkable. No hydronephrosis or renal stone. The bladder is underdistended. The uterus is unremarkable. No adnexal masses. GI: Segmental wall thickening of the proximal and mid sigmoid colon. There is 2.5 cm intramural abscess involving the left right aspect of the proximal sigmoid colon, new from prior exam. Superimposed mild colonic diverticulosis. The appendix is unremarkable. Small hiatal hernia. No bowel obstruction. No small bowel wall thickening. No abdominal aortic aneurysm. Mild calcification of the abdominal aorta. No abdominal or pelvic lymphadenopathy. No free pelvic fluid. Abdominal wall: Unremarkable Bones: No suspicious lytic or blastic lesion. IMPRESSION: 1. Segmental wall thickening of the proximal and mid sigmoid colon, grossly unchanged in extent in comparison to prior exam. However, interval development of 2.5 cm intramural abscess in the proximal sigmoid colon. Overall, findings suggestive of sigmoid colon colitis with intramural abscess. Underlying malignancy cannot be excluded. Dictated by: Radha Winston M.D. on 03/24/2024 at 12:42 Approved by: Radha Winston M.D. on 03/24/2024 at 12:53
[2024-03-24 10:42] LABS: Estimated Glomerular Filt Rate 54 mL/min (>60)
== END ==
PROVIDERS: Radiology Diagnostic Radiology; PCP Family Medicine; Referring Provider Surgery; Visit Provider Surgery
DX: K57.90 Diverticulosis of intestine, part unspecified, without perforation or abscess without bleeding (principal); K63.0 Abscess of intestine
CPT/HCPCS: 36415; 74177; 82565; Q9967

== ENCOUNTER → 2024-09-02 08:15 | Outpatient (CLI) | payer MEDICARE, SELFPAY ==
[2024-09-02 09:04] LABS: Add Manual Diff / Slide Review NO; Basophils Absolute Auto 0 /uL (0-100); Basophils Percent Auto 0.5 % (0-2); Eosinophils Absolute Auto 100 /uL (0-450); Eosinophils Percent Auto 1.9 % (2-4); Hematocrit 39.8 % (36-46); Lymphocytes Absolute Auto 1700 /uL (1100-4500); Mean Corpuscular HGB Conc 32.6 % (30-36); Mean Corpuscular Hemoglobin 28.6 PG (26-34); Mean Corpuscular Volume 87.7 fL (80-100); Monocytes Absolute Auto 500 /uL (0-900); Monocytes Percent Auto 8.1 % (3-14); Neutrophils Absolute Auto 3700 /uL (1500-7000); Neutrophils Percent Auto 61.5 % (50-75); Platelet Count 274 X10^3/uL (150-400); Red Blood Cell Count 4.54 X10^6/uL (4.0-5.2); Red Cell Distribution Width 13.5 % (11.6-14.8); White Blood Cell Count 6.1 X10^3/uL (4.5-11.0)
[2024-09-02 10:23] LABS: Alanine Aminotransferase 27 IU/L (<35); Albumin 4.1 g/dL (3.5-5.0); Albumin Globulin Ratio 1.5 (1.0-2.8); Alkaline Phosphatase 59 U/L (38-126); Aspartate Aminotransferase 27 IU/L (14-36); BUN Creatinine Ratio 25.8 (6-22); Bilirubin Total 0.5 mg/dL (0.2-1.3); Blood Urea Nitrogen 17 mg/dL (7-17); Calcium 9.2 mg/dL (8.4-10.2); Carbon Dioxide 29 mmol/L (22-32); Chloride 106 mmol/L (98-107); Cholesterol 211 mg/dL (140-199); Estimated Glomerular Filt Rate > 60 mL/min (>60); Globulin 2.8 g/dL (1.7-4.1); Glucose 106 mg/dL (80-110); HDL Cholesterol 80 mg/dL (40-60); HEMOLYSIS < 15 (0-50); LDL Cholesterol Calculated 116 mg/dL (<100); Potassium 4.4 mmol/L (3.4-5.1); Sodium 139 mmol/L (137-145); Total Protein 6.9 g/dL (6.3-8.2); Triglycerides 73 mg/dL (35-150)
[2024-09-02 11:00] LABS: Thyroid Stimulating Hormone < 0.015 uIU/mL (0.47-4.68)
[2024-09-02 11:36] LABS: Free T3, Triiodothyronine Free 5.21 pg/mL (2.77-5.27); Free T4, Direct Thyroxine 1.55 ng/dL (0.78-2.19)
== END ==
PROVIDERS: PCP Family Medicine; Referring Provider Family Medicine; Visit Provider Family Medicine
DX: E05.90 Thyrotoxicosis, unspecified without thyrotoxic crisis or storm (principal); K57.90 Diverticulosis of intestine, part unspecified, without perforation or abscess without bleeding; Z79.899 Other long term (current) drug therapy; R73.03 Prediabetes
CPT/HCPCS: 36415; 80053; 80061; 84439; 84443; 84481; 85025